=== PATIENT | female | born 1955 | race Caucasian/White ===

== ENCOUNTER 2021-02-22 19:05 | Emergency (ER) | payer MEDICARE, OTHER, SELFPAY ==
--- NOTE | ~2021-02-22 | CT_ITS ---
EXAMINATION: CT abdomen pelvis w con DATE: 02/22/2021 20:48 INDICATION: Abdominal pain after colonoscopy. TECHNIQUE: Computed tomography (CT) of the abdomen and pelvis was performed with 100 mL Omnipaque 350 intravenous contrast. Automated exposure control and iterative reconstruction technique were employe d. The dose-length product was 473.40 mGy-cm. COMPARISON: None. FINDINGS: The visualized portions of the lung bases demonstrate mild atelectasis. No pulmonary effusi on. The heart size is normal. No pericardial effusion. There is a small sliding hiatal hernia. There is mild intrahepatic biliary duct dilatation, likely secondary to cholecystectomy. The spleen, pancre as, adrenal glands, and right kidney are normal. There is a 5 mm cyst in left kidney. There is wall t hickening of the sigmoid colon, consistent with inflammation. There is a foci of gas in the sigmoid m esentery. There are changes of right hemicolectomy. There is a large volume of free intraperitoneal g as anteriorly. There are no pathologically enlarged lymph nodes. 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 There is moderate lumbar spondylosis. IMPRESSION: 1. Large volume of free intraperitoneal gas with perforation likely in the sigmoid colon where there is inflammation and mesenteric gas. Reviewed, dictated and finalized at location A. IMPRESSION: 1. Large volume of free intraperitoneal gas with perforation likely in the sigm oid colon where there is inflammation and mesenteric gas.
[2021-02-22 19:09] VITALS: BP 109/59; PULSE 112; RESP 18; TEMP 37.4; O2SAT 100
[2021-02-22 19:21] LABS: Basophils Percent Auto 0.2 % (0.2-1.2); Eosinophils Percent Auto 0.2 % (0-4.4); Hemoglobin 14.4 g/dL (12.0-15.0); Immature Granulocyte Absolute 0.03 K/mm3 (0.00-0.031); Immature Granulocyte Percent A 0.3 % (0-0.5); Lymphocytes Absolute Auto 0.88 K/mm3 (0.9-3.2); Lymphocytes Percent Auto 9.9 % (18.3-44.2); Mean Corpuscular HGB Conc 32.7 g/dl (32-36); Mean Corpuscular Hemoglobin 30.1 pg (26-34); Mean Corpuscular Volume 92.1 fl (80-100); Mean Platelet Volume 8.4 fl (7.4-10.4); Monocytes Absolute Auto 0.4 K/mm3 (0.1-0.6); Monocytes Percent Auto 4.4 % (2.6-8.5); Neutrophils Absolute Auto 7.5 K/mm3 (1.3-6.7); Platelet Count Result 240 k/mm3 (150-375); Red Blood Count 4.78 M/mm3 (4.2-5.4); Red Cell Distribution Width 13.5 % (11.5-14.5); White Blood Count 8.9 K/mm3 (4.5-10.0)
[2021-02-22 19:33] LABS: Alanine Aminotransferase 25 U/L (4-35); Albumin Level 4.6 g/dL (3.5-5.1); Alkaline Phosphatase 103 U/L (38-126); Anion Gap 10 mmol/L (8-16); Aspartate Amino Transferase 31 U/L (14-36); Bilirubin,Total 0.3 mg/dL (0.2-1.3); Blood Urea Nitrogen 18 mg/dL (7-17); Calcium 9.7 mg/dL (8.4-10.2); Carbon Dioxide 24 mmol/L (22-30); Chloride 107 mmol/L (98-107); Estimated CRCL calculation 53 ml/min; Estimated Glomerular Filt Rate > 60; Glucose 145 mg/dL (65-105); Lipase 123 U/L (23-300); Potassium 3.8 mmol/L (3.4-5.0); Sodium 141 mmol/L (137-145)
--- NOTE | 2021-02-22 20:05 | ED.ABDPAIN ---
HPI - Abdominal Pain General Chief Complaint: Abdominal Pain <Chantal Silva PA-C - Last Filed: 02/22/21 23:16> Stated Complaint: ABD Pain after Colonoscopy today <Chantal Silva PA-C - Last Filed: 02/22/21 23:16> Time Seen by Provider: 02/22/21 19:54 <Chantal Silva PA-C - Last Filed: 02/22/21 23:16> Source: patient <Chantal Silva PA-C - Last Filed: 02/22/21 23:16> Mode of arrival: wheelchair <Chantal Silva PA-C - Last Filed: 02/22/21 23:16> Limitations: no limitations <Chantal Silva PA-C - Last Filed: 02/22/21 23:16> History of Present Illness HPI narrative: This is a 65 year old female that presents to the ER for abdominal pain. Reports she had a colonoscopy this morning at [facility]. She was discharged around 10:30 AM. Reports since the afternoon she has had worsening abdominal pain. Associated with nausea and vomiting. The pain is sharp and constant in nature. Denies fever, dysuria or hematuria. <Chantal Silva PA-C - Last Filed: 02/22/21 23:16> Related Data Allergies/Adverse Reactions: Allergies Allergy/AdvReac Type Severity Reaction Status Date / Time No Known Allergies Allergy Verified 02/22/21 20:47 <Chantal Silva PA-C - Last Filed: 02/22/21 23:16> Review of Systems Review of Systems: Narrative: CONSTITUTIONAL: Denies fever GASTROINTESTINAL: Reports abdominal pain, nausea, vomiting. Denies diarrhea. GENITOURINARY: Denies dysuria or hematuria. <Chantal Silva PA-C - Last Filed: 02/22/21 23:16> All systems reviewed & are unremarkable except as noted in HPI and below <Chantal Silva PA-C - Last Filed: 02/22/21 23:16> PMFSH Past Medical History Medical History: Medical History (Updated 02/22/21 @ 22:00 by Chantal Silva PA-C) History of depression History of hypothyroidism <Chantal Silva PA-C - Last Filed: 02/22/21 23:16> Surgical History Surgical History: Surgical History (Updated 02/22/21 @ 22:00 by Chantal Silva PA-C) History of cholecystectomy History of partial colectomy <Chantal Silva PA-C - Last Filed: 02/22/21 23:16> Social History Social History: Social History (Updated 02/22/21 @ 22:00 by Chantal Silva PA-C) Smoking status: Never smoker <Chantal Silva PA-C - Last Filed: 02/22/21 23:16> Exam Narrative: Exam Narrative: GENERAL: Well-appearing, well-nourished, and in no acute distress. HEAD: Normocephalic, atraumatic. EYES: EOMI. CHEST: Clear to auscultation. No respiratory distress. No wheezes rales or rhonchi HEART: Regular rate and rhythm. No murmur heard. Normal peripheral pulses. ABDOMEN: Soft, nondistended, hypoactive bowel sounds. Tender to palpation throughout the lower abdomen, without guarding EXTREMITIES: Normal range of motion. No edema. SKIN: Warm, dry, no rash. NEURO: No focal deficits. Alert and oriented x3. 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 Impressions Abdomen/Pelvis CT 02/22/21 20:55 IMPRESSION: 1. Large volume of free intraperitoneal gas with perforation likely in the sigmoid colon where there is inflammation and mesenteric gas. <Santa Talamantes MD - Last Filed: 02/22/21 21:45> Consultations Consultation #1: Spoke with Dr. Segura, ER physician at [facility] who accepts patient as transfer to the ER <Chantal Silva PA-C - Last Filed: 02/22/21 23:16> Date: 02/22/21 <Chantal Silva PA-C - Last Filed: 02/22/21 23:16> Time: 21:32 <Chantal Silva PA-C - Last Filed: 02/22/21 23:16> Consultation #2: Dr. Talamantes spoke with Dr. Calloway, patient's general surgeon about workup <Chantal Silva PA-C - Last Filed: 02/22/21 23:16> Date: 02/22/21 <BRIDGER Nolan L
[2021-02-22] MEDS: MORPHINE SULFATE (*CRX) 4 MG/ML INJ IV PUSH (20:48)
[2021-02-22] MEDS: ONDANSETRON INJ 4 MG/2 ML VIAL IV PUSH (20:49)
[2021-02-22] MEDS: SODIUM CHLORIDE 0.9% IV 1,000 ML 999 ML IV CONT ×2 (20:49→22:08)
[2021-02-22 20:51] VITALS: BP 115/59; PULSE 106; RESP 29; TEMP 37.8; O2SAT 97
--- NOTE | 2021-02-22 20:52 | PC.NURSE ---
PT presents to ED with and complaints of diffuse abdominal pain that onset today after colonoscopy. Pt states procedure was at approx 0830. pt currently rates pain 9/10 and states supine position helps decrease pain. Per , pt had x6 episodes of emesis after 1630. Pt denies nausea at this time. Pt and denies blood in urine, feces and emesis. Pt is alert and oriented at this time and vitals are stable. at bedside and call button and personal items within reach. Pt advised to press for assistance.
[2021-02-22 21:25] LABS: CRP 2.1 mg/dL (<1.0)
--- NOTE | 2021-02-22 21:53 | PC.NURSE ---
made contact with the [facility] to transfer patient to [facility]. [facility] is in route now
--- NOTE | 2021-02-22 22:13 | PC.NURSE ---
[facility] has arrived
[2021-02-22 22:18] LABS: Add Urine Microscopic? NO; Appearance Urine Clear (Clear); Bilirubin Urine Negative (Negative); Blood Urine Negative (Negative); Color Urine Yellow (Yellow); Glucose Urine UA Negative (Negative); Ketones Urine Negative (Negative); Leukocyte Esterase Ur Negative LEU/UL (Negative); Nitrate Urine Negative (Negative); Protein Urine Negative (Negative); Urobilinogen Urine Negative mg/dL (<2.0)
[2021-02-22 22:22] LABS: Specific Grav Ur > 1.060 (1.001-1.035)
[2021-02-22 22:23] LABS: Lactic Acid Reflex 1.6 mmol/L (0.7-2.1)
[2021-02-22 22:26] LABS: Partial Thromboplastin Time 30.9 SECONDS (22.3-36.8); Prothrombin Time 13.6 Seconds (11.1-14.7)
[2021-02-22 23:20] VITALS: BP 138/79; PULSE 103; RESP 21; TEMP 36.7; O2SAT 94
== END 2021-02-22 23:25 | disposition short-term general hospital (02) ==
PROVIDERS: Physician Assistant; Emergency Provider Emergency Medicine
DX: K63.1 Perforation of intestine (nontraumatic) (principal); E03.9 Hypothyroidism, unspecified; Z98.890 Other specified postprocedural states
CPT/HCPCS: 36415; 74177; 80053; 81003; 83605; 83690; 85025; 85610; 85730; 86140; 87040; 96361; 96365; 96366; 96375; 99285; J0131; J2270; J2405; J2543; J7030; Q9967